=== PATIENT | female | born 1935 | race Caucasian/White ===

== ENCOUNTER 2018-08-28 16:33 | Inpatient (IN) ==
[2018-08-28] MEDS ORDERED: Sod Chloride 0.9% Inj 1,000 ML IV.SIG ONE ×3 (17:02→18:49)
--- NOTE | 2018-08-28 17:05 | ED ---
HPI General Chief complaint: Weakness Stated complaint: poss low blood pressure Time Seen by Provider: 08/28/18 16:53 Source: patient Mode of arrival: ambulatory Limitations: no limitations History of Present Illness HPI Narrative: 82 YO F with PMH of DM, CKD, HLD, HTN presents to the ED for evaluation of chills, fever. Chills onset around 930 this AM. She states that she had a diminished appetite at breakfast today and went home and "got under a bunch of blankets." She states that she took her temperature around noon by oral thermometer and "it was 102." She states that she took two Tylenol. She states that "I know the fever broke because I got sweaty." She states that she was feeling well prior to this. On presentation she denies headache, dizziness , chest pain, palpitations, shortness of breath, abdominal pain, nausea, vomiting, dysuria. She states that she had a normal bowel movement yesterday followed by a few loose bowel movements last night. She endorses chronic back pain, no worse today. She has received this years flu shot. She has received the pneumonia shot. Related Data Home Medications Medication Instructions Recorded Confirmed acetaminophen [Tylenol] 650 mg PO Q6H PRN 08/28/18 08/28/18 cholecalciferol (vitamin D3) 5,000 units PO DAILY 08/28/18 08/28/18 [Vitamin D3] cyanocobalamin (vitamin B-12) 2,000 mcg PO DAILY 08/28/18 08/28/18 [Vitamin B-12] enalapril maleate 40 mg PO DAILY 08/28/18 08/28/18 gabapentin 100 mg PO HS 08/28/18 08/28/18 glipizide 10 mg PO BID 08/28/18 08/28/18 lovastatin 40 mg PO DAILY 08/28/18 08/28/18 meclizine 25 mg PO BID PRN 08/28/18 08/28/18 metformin 1,000 mg PO AC BREAKFAST 08/28/18 08/28/18 metformin 1,500 mg PO HS 08/28/18 08/28/18 niacin 1,000 mg PO DAILY 08/28/18 08/28/18 pioglitazone 45 mg PO DAILY 08/28/18 08/28/18 pioglitazone [Actos] 45 mg PO DAILY 08/28/18 08/28/18 triamterene-hydrochlorothiazid 1 tab PO DAILY 08/28/18 08/28/18 Allergies Allergy/AdvReac Type Severity Reaction Status Date / Time aspirin Allergy Severe Anaphylaxis Verified 08/28/18 17:48 NSAIDS (Non-Steroidal Allergy Anaphylaxis Verified 08/28/18 17:48 Anti-Inflamma Review of Systems ROS: all other systems reviewed are negative [facility] Medical History Medical History Chronic kidney disease (Acute) Degenerative disk disease (Acute) Diabetes (Acute) Diverticulosis (Acute) Hyperlipidemia (Acute) Osteopenia (Acute) Surgical History Surgical History History of left shoulder replacement (Acute) History of right knee joint replacement (Acute) Social History Social History Substance History: No History of Abuse Smoking Status: Former smoker How Often Do You Have a Drink Containing Alcohol: Never Recent Travel in [place] within the Last 8 Weeks: No Recent Out of Country Travel within the Last 8 Weeks: No Immunization History Tetanus Immunization: Unsure Exam Narrative Exam Narrative: GENERAL: Well-nourished, well-developed, nontoxic-appearing obese white female in no acute distress. SKIN: Focused skin assessment warm/dry. HEAD: Atraumatic. Normocephalic. EYES: Pupils equal and round. No scleral icterus. No injection or drainage. ENT: No nasal bleeding or discharge. Mucous membranes pink and moist. NECK: Trachea midline. No JVD. CARDIOVASCULAR: Regular rate and rhythm. No murmur appreciated. RESPIRATORY: No accessory muscle use. Clear to auscultation. Breath sounds equal bilaterally. GASTROINTESTINAL: Abdomen soft, non-tender, nondistended. Hepatic and splenic margins not palpable. MUSCULOSKELETAL: No obvious deformities. No clubbing. No cyanosis. No edema. NEUROLOGICAL: Awake and alert. No obvious cranial nerve deficits. Motor grossly within normal limits. Normal speech. PSYCHIATRIC: Appropriate mood and affect; insight and judgment normal. Course Initial Documented Vital Signs Temperature 98.8 F 08/28/18 16:41 Pulse Rate 117 H 08/28/18 16:41 Respiratory Rate 20 08/28/18 16:41 Blood Pressure 161/85 H 08/28/18 16:41 Pulse Oximetry 93 L 08/28/18 16:41 Last Documented Vital Signs Temperature 98.8 F 08/28/18 16:41 Pulse Rate 103 H 08/28/18 18:01 Respiratory Rate 20 08/28/18 18:01 Blood Pressure 137/58 L 08/28/18 18:01 Pulse Oximetry 97 08/28/18 18:01 Medical Decision Making TAMMY Attestation TAMMY supervised visit: Yes Attestation: I, Dr. Oh, have reviewed the advance practice practitioner's documentation and am in agreement, met with the patient face to face, made the diagnosis, and the medical decision making was done by me. *My assessment and Findings: Patient is an 82-year-old female with history of chronic kidney disease, hyperlipidemia, diabetes, degenerative disc disease, presents to the emergency room for evaluation of chills. Patient reports that around 9:30 AM this morning , she began to not feel well. Patient reports that she went to shiver and had to go under her blankets. Patient with no complaints of cough or congestion, denies any headache or dizziness, denies any abdominal pain. Patient is tachycardic in the emergency room with a heart rate of 115. Her white blood cell count is 25.6, x-ray of the chest shows no acute process, influenza types A & B are negative. Patient was pancultured, he was given a dose of vanco as well as zosyn MDM Narrative Medical decision making narrative: .82 YO F with PMH of DM, CKD, HLD, HTN presents to the ED for evaluation of fever. On presentation she denies headache , dizziness, chest pain, palpitations, shortness of breath, cough, abdominal pain, nausea, vomiting, dysuria. She states that she had a normal bowel movement yesterday followed by a few loose bowel movements last night. She endorses chronic back pain, no worse today. She has received this years flu shot. She has received the pneumonia shot. Heart rate 117, BP 161/85, afebrile on presentation. On exam the patient is nontoxic appearing. ENT exam is unremarkable. Chest CTA B. Abdomen soft and nontender. No lower extremity edema. IV was established. Patient was administered 1 L normal saline. Flu swab negative. CBC reveals leukocytosis of 25.6 with 23 band neutrophils. INR 1.1. EKG without acute changes. Troponin less than 0.02. CXR reveals no acute cardiopulmonary process. UA without evidence of UTI. Patient was administered a second liter of normal saline. Lactic acid pending. Blood cultures were obtained. Patient was administered IV vancomycin and Zosyn. Plan to admit. Patient is agreeable with this plan. I spoke with Dr. Steiner who agrees to accept the patient to the medicine service. Please see medicine notes for disposition. Medical Screen Exam Complete: Yes Emergency Medical Condition: Yes Differential Diagnosis Differential Diagnosis: Viral syndrome versus influenza versus metabolic derangement versus dehydration versus CHF versus UTI versus other Lab Data Result diagrams: 08/28/18 17:10 08/28/18 17:10 Lab Results 08/28/18 08/28/18 08/28/18 Range/Units 17:10 17:10 17:10 WBC 25.6 H (4.0-11.0) th/mm3 RBC 3.84 L (4.00-5.30) mil/mm3 Hgb 12.2 (11.6-15.3) gm/dL Hct 37.0 (35.0-46.0) % MCV 96.3 (80.0-100.0) fL MCH 31.8 (27.0-34.0) pg MCHC 33.0 (32.0-36.0) % RDW 14.7 (11.6-17.2) % Plt Count 162 (150-450) th/mm3 MPV 11.1 H (7.0-11.0) fL Prelim Diff (Auto) Slide review pending WBC Differential Manual diff final Seg Neuts % (Manual) 69 (16-70) % Band Neuts % (Manual) 23 H (0-6) % Lymphocytes % (Manual) 3 L (9-44) % Monocytes % (Manual) 4 (0-8) % Eosinophils % (Manual) 1 (0-4) % Abs Neuts (Manual) 23.6 H (1.8-7.7) th/mm3 Differential Comment . Platelet Estimate Normal (Normal) Platelet Morphology Giant H (Normal) RBC Morphology Normal (Normal) PT 11.2 (9.8-11.6) sec INR 1.1 Ratio Sodium 137 (136-145) meq/L Potassium 5.0 (3.5-5.1) meq/L Chloride 105 (98-107) meq/L Carbon Dioxide 23.7 (21.0-32.0) meq/L Anion Gap 8 (5-15) meq/L BUN 38 H (7-18) mg/dL Creatinine 2.11 H (0.50-1.00) mg/dL Estimated GFR 22 L (>89) mL/min Random Glucose 319 H (74-106) mg/dL Calcium 8.8 (8.5-10.1) mg/dL Magnesium 1.7 (1.5-2.5) mg/dL Total Bilirubin 0.8 (0.2-1.0) mg/dL AST 63 H (15-37) U/L ALT 48 (10-53) U/L Alkaline Phosphatase 99 (45-117) U/L Troponin I Less than 0.02 L (0.02-0.05) ng/mL B-Natriuretic Peptide (0-100) pg/mL Total Protein 7.7 (6.4-8.2) g/dL Albumin 3.6 (3.4-5.0) g/dL Urine Color (Yellw/Straw) Urine Clarity (Clear) Urine pH (5.0-8.5) Ur Specific [place] (1.002-1.035) Urine Protein (Neg-Trace) mg/dL Urine Glucose (UA) (Negative) mg/dL Urine Ketones (Negative) mg/dL Urine Occult Blood (Negative) Urine Nitrate (Negative) Urine Bilirubin (Negative) Urine Urobilinogen (Less than 2) mg/dL Ur Leukocyte Esterase (Negative) Urine RBC (0-3) /hpf Urine WBC (0-5) /hpf Ur Squamous Epith Cells (0-5) /hpf Ur Transition Epith Cell (None) /hpf Ur Renal Epithelial Cell (None) /hpf Hyaline Casts (0-3) /lpf Waxy Casts (None) /lpf Urine Mucus (Occasional) /lpf Micro UA Comment Ur Microscopic Review Urine Culture Comments 08/28/18 08/28/18 Range/Units 17:10 17:25 WBC (4.0-11.0) th/mm3 RBC (4.00-5.30) mil/mm3 Hgb (11.6-15.3) gm/dL Hct (35.0-46.0) % MCV (80.0-100.0) fL MCH (27.0-34.0) pg MCHC (32.0-36.0) % RDW (11.6-17.2) % Plt Count (150-450) th/mm3 MPV (7.0-11.0) fL Prelim Diff (Auto) WBC Differential Seg Neuts % (Manual) (16-70) % Band Neuts % (Manual) (0-6) % Lymphocytes % (Manual) (9-44) % Monocytes % (Manual) (0-8) % Eosinophils % (Manual) (0-4) % Abs Neuts (Manual) (1.8-7.7) th/mm3 Differential Comment Platelet Estimate (Normal) Platelet Morphology (Normal) RBC Morphology (Normal) PT (9.8-11.6) sec INR Ratio Sodium (136-145) meq/L Potassium (3.5-5.1) meq/L Chloride (98-107) meq/L Carbon Dioxide (21.0-32.0) meq/L Anion Gap (5-15) meq/L BUN (7-18) mg/dL Creatinine (0.50-1.00) mg/dL Estimated GFR (>89) mL/min Random Glucose (74-106) mg/dL Calcium (8.5-10.1) mg/dL Magnesium (1.5-2.5) mg/dL Total Bilirubin (0.2-1.0) mg/dL AST (15-37) U/L ALT (10-53) U/L Alkaline Phosphatase (45-117) U/L Troponin I (0.02-0.05) ng/mL B-Natriuretic Peptide 30 (0-100) pg/mL Total Protein (6.4-8.2) g/dL Albumin (3.4-5.0) g/dL Urine Color Yellow (Yellw/Straw) Urine Clarity Hazy H (Clear) Urine pH 7.0 (5.0-8.5) Ur Specific [place] 1.015 (1.002-1.035) Urine Protein 30 H (Neg-Trace) mg/dL Urine Glucose (UA) 50 (Negative) mg/dL Urine Ketones Negative (Negative) mg/dL Urine Occult Blood Negative (Negative) Urine Nitrate Negative (Negative) Urine Bilirubin Negative (Negative) Urine Urobilinogen Less than 2 (Less than 2) mg/dL Ur Leukocyte Esterase Trace H (Negative) Urine RBC Less than 1 (0-3) /hpf Urine WBC 4 (0-5) /hpf Ur Squamous Epith Cells 1 (0-5) /hpf Ur Transition Epith Cell <1 (None) /hpf Ur Renal Epithelial Cell <1 (None) /hpf Hyaline Casts 45 (0-3) /lpf Waxy Casts 1 (None) /lpf Urine Mucus Few H (Occasional) /lpf Micro UA Comment Culture not ind Ur Microscopic Review Not Reportable Urine Culture Comments Culture not ind Imaging Data Radiologist's impression: Chest X-Ray 08/28/18 17:02 CONCLUSION: No acute cardiopulmonary disease. ECG Data Attestation: I personally reviewed and interpreted this ECG as follows: Interpretation: Rate 115, sinus tachycardia. AL interval 135, QRS 88, QTc 383 ms. Normal axis. No acute ST changes. Reviewed by Dr. Oh. Discharge Plan Discharge Disposition Patient Disposition: ED Admit(ED Internal Use Only) Discharge Order Discharge Orders: ED Use Only Admit Order (Routine); Ordered 08/28/18 Ordered By: Yanely Morales Physicians Team ED Provider: Jessica Oh ED Midlevel Provider: Yanely Morales Primary Care Provider: Branden Paul Rxs /Orders / Referrals /Forms Prescriptions: No Action acetaminophen [Tylenol] 325 mg Tablet 650 mg PO Q6H PRN (Reason: Pain) RF: 0 enalapril maleate 20 mg Tablet 40 mg PO DAILY RF: 0 lovastatin 40 mg Tablet 40 mg PO DAILY RF: 0 cyanocobalamin (vitamin B-12) [Vitamin B-12] 1,000 mcg Tablet 2,000 mcg PO DAILY RF: 0 pioglitazone 45 mg Tablet 45 mg PO DAILY RF: 0 pioglitazone [Actos] 45 mg Tablet 45 mg PO DAILY RF: 0 meclizine 25 mg Tablet 25 mg PO BID PRN (Reason: Dizziness) RF: 0 metformin 1,000 mg Tablet 1,500 mg PO HS RF: 0 metformin 1,000 mg Tablet 1,000 mg PO AC BREAKFAST RF: 0 niacin 500 mg Tablet 1,000 mg PO DAILY RF: 0 triamterene-hydrochlorothiazid 37.5-25 mg Tablet 1 tab PO DAILY RF: 0 gabapentin 100 mg Capsule 100 mg PO HS RF: 0 glipizide 5 mg Tablet 10 mg PO BID RF: 0 cholecalciferol (vitamin D3) [Vitamin D3] 5,000 unit Tablet 5,000 units PO DAILY RF: 0 Discharge Interventions Interventions: Vital Signs Last Done: 08/28/18 18:01 Status ED Status: Pending Admission
--- NOTE | 2018-08-28 17:16 | XR ---
EXAM DATE: 08/28/2018 5:12 PM EST AGE/SEX: 82 years / Female INDICATIONS: Short of breath CLINICAL DATA: This is the patient's initial encounter. Patient reports that signs and symptoms have been present for 1 day and indicates a pain score of 0/10. MEDICAL/SURGICAL HISTORY: Diabetes mellitus type II. . Left shoulder replacement COMPARISON: No prior exams available for comparison. FINDINGS: A single AP view of the chest demonstrates the lungs to be symmetrically aerated without evidence of mass, infiltrate or effusion. The heart size is at the upper limits of normal with no evidence of pu lmonary edema. Osseous structures are intact. CONCLUSION: No acute cardiopulmonary disease. Electronically signed by: Elder Pena MD Board Certified Radiologist 08/28/2018 5:14 PM EST
[2018-08-28 17:25] LABS: Hemoglobin 12.2 gm/dL (11.6-15.3); Mean Corpuscular Hemoglobin 31.8 pg (27.0-34.0); Mean Corpuscular Volume 96.3 fL (80.0-100.0); Mean Platelet Volume 11.1 fL (7.0-11.0); Platelet Count 162 th/mm3 (150-450); Red Blood Count 3.84 mil/mm3 (4.00-5.30); Red Cell Distribution Width 14.7 % (11.6-17.2); White Blood Count 25.6 th/mm3 (4.0-11.0)
[2018-08-28 17:37] LABS: INR 1.1 Ratio; Prothrombin Time 11.2 sec (9.8-11.6)
[2018-08-28] MEDS ORDERED: Vancomycin Inj 1,000 MG in Sodium Chlor 0.9% Inj 250 ML IV.SIG ONE (17:44)
[2018-08-28] MEDS ORDERED: Piperacil/Tazo 4.5 GM Premix 4.5 GM/100 ML BAG IV.SIG SCH (17:45)
[2018-08-28 17:53] LABS: Bilirubin,Urine Negative (Negative); Clarity,Urine Hazy (Clear); Color,Urine Yellow (Yellw/Straw); Glucose,Urine (UA) 50 mg/dL (Negative); Hyaline Casts,Urine 45 /lpf (0-3); Leukocyte Esterase,Urine Trace (Negative); Mucus,Urine Few /lpf (Occasional); Nitrite,Urine Negative (Negative); Renal Epithelial Cells,Urine <1 /hpf; Specific Gravity,Urine 1.015 (1.002-1.035); Squamous Epithelial Cell,Urine 1 /hpf (0-5); Transitional Epi Cells,Urine <1 /hpf
[2018-08-28 17:55] LABS: Eosinophils 1 % (0-4); Lymphocytes 3 % (9-44); Monocytes 4 % (0-8); Platelet Estimate Normal (Normal); RBC Morphology Normal (Normal)
[2018-08-28 17:58] LABS: Alkaline Phosphatase 99 U/L (45-117); Total Protein 7.7 g/dL (6.4-8.2)
[2018-08-28 18:08] LABS: Alanine Aminotransferase 48 U/L (10-53); Albumin 3.6 g/dL (3.4-5.0); Anion Gap 8 meq/L (5-15); Aspartate Aminotransferase 63 U/L (15-37); Blood Urea Nitrogen 38 mg/dL (7-18); Calcium 8.8 mg/dL (8.5-10.1); Carbon Dioxide 23.7 meq/L (21.0-32.0); Chloride 105 meq/L (98-107); Glomerular Filtration Rate 22 mL/min (>89); Glucose,Random 319 mg/dL (74-106); Magnesium 1.7 mg/dL (1.5-2.5); Sodium 137 meq/L (136-145)
[2018-08-28] MEDS ORDERED: Vancomycin Consult Pharmacy OTHER PRN (19:27)
[2018-08-28] MEDS ORDERED: Bisacodyl 10 MG Supp RECTAL PRN (19:27)
[2018-08-28] MEDS ORDERED: Dextrose 50% in Water 50 ML Vial IV.PUSH PRN (19:27)
[2018-08-28] MEDS ORDERED: Vancomycin Inj 500 MG in Sodium Chlor 0.9% Inj 100 ML IV.SIG ONE (20:30)
[2018-08-28] MEDS: Senna/Docusate Sodium 8.6/50 MG Tablet PO SCH (21:05)
--- NOTE | 2018-08-28 21:05 | P.HPIM ---
History of Present Illness Primary Care Physician: Branden Paul MD History of Present Illness: CXR with no acute findings per Troponin negative. INR 1.1.This is a 82-year-old female with a PMH of HTN, Hyperlipidemia , DM and CKD who presented to the ER at the insistence of her children who are Paramedics for eval of fever, chills and generalized weakness starting today. Pt states she went to breakfast with a friend, however had no appetite and developed sudden chills, temp at home 101.0. Denies cough, SOB, chest pain, nausea, vomiting or diarrhea. No sick contacts reported. On arrival, BP 161/85 , HR 117, O2 sat 93% on RA, Temp 98.8. WBC 25.6 per lactic Acid 4.1. Creatinine 2.11, previously 1.33 on 04/16/2016. UA negative for UTI. CXR with no acute findings. S/p Blood cultures, Vanc/Zosyn. Pt currently without complaints. Diagnosis (1) Sepsis: (2) ROLANDO (acute kidney injury): (3) DM (diabetes mellitus): Inpatient Certification Inpatient Certification: I certify that the inpatient services were ordered in accordance with Medicare regulations governing the order. This includes certification that hospital inpatient services are reasonable and necessary and in the case of services not specified as inpatient-only under 42 CFR 419.22(n), that they are appropriately provided as inpatient services in accordance to with the 2-midnight benchmark under 43 CFR 412.3(e) Estimated Total Length of Stay (Days): 2 Plans for Post Hospital Care: Not yet determined Review of Systems Review of Systems: all other systems reviewed are negative [facility] Medical History Medical History Chronic kidney disease (Acute) Degenerative disk disease (Acute) Diabetes (Acute) Diverticulosis (Acute) Hyperlipidemia (Acute) Osteopenia (Acute) Surgical History Surgical History History of left shoulder replacement (Acute) History of right knee joint replacement (Acute) Social History Social History Substance History: No History of Abuse Smoking Status: Former smoker How Often Do You Have a Drink Containing Alcohol: Never Recent Travel in [facility] within the Last 8 Weeks: No Recent Out of Country Travel within the Last 8 Weeks: No Immunization History Tetanus Immunization: Unsure Medications and Allergies Allergies Allergy/AdvReac Type Severity Reaction Status Date / Time aspirin Allergy Severe Anaphylaxis Verified 08/28/18 17:48 NSAIDS (Non-Steroidal Allergy Anaphylaxis Verified 08/28/18 17:48 Anti-Inflamma Home Medications Medication Instructions Recorded Confirmed Type acetaminophen [Tylenol] 650 mg PO Q6H PRN 08/28/18 08/28/18 History cholecalciferol (vitamin D3) 5,000 units PO DAILY 08/28/18 08/28/18 History [Vitamin D3] cyanocobalamin (vitamin B-12) 2,000 mcg PO DAILY 08/28/18 08/28/18 History [Vitamin B-12] enalapril maleate 40 mg PO DAILY 08/28/18 08/28/18 History gabapentin 100 mg PO HS 08/28/18 08/28/18 History glipizide 10 mg PO BID 08/28/18 08/28/18 History lovastatin 40 mg PO DAILY 08/28/18 08/28/18 History meclizine 25 mg PO BID PRN 08/28/18 08/28/18 History metformin 1,000 mg PO AC BREAKFAST 08/28/18 08/28/18 History metformin 1,500 mg PO HS 08/28/18 08/28/18 History niacin 1,000 mg PO DAILY 08/28/18 08/28/18 History pioglitazone 45 mg PO DAILY 08/28/18 08/28/18 History pioglitazone [Actos] 45 mg PO DAILY 08/28/18 08/28/18 History triamterene-hydrochlorothiazid 1 tab PO DAILY 08/28/18 08/28/18 History Active Medications: Active Medications Acetaminophen (Tylenol) 650 mg PO Q4H PRN PRN Reason: Temp > 100.4 Al Hydroxide/Mg Hydroxide (Milk Of Magnesia Liq) 30 ml PO Q12H PRN PRN Reason: Mild Constipation Bisacodyl (Dulcolax Supp) 10 mg RECTAL DAILY PRN PRN Reason: SEVERE CONSITIPATION Dextrose (D50w Vial) 50 ml IV.PUSH UNSCH PRN PRN Reason: PER HYPOGLYCEMIA PROTOCOL Glucagon (Glucagon Inj) 1 mg OTHER PRN PRN PRN Reason: for Hypoglycemia Protocol Piperacillin/Tazobactam/Dextrose (Zosyn 4.5 Gm Premix) 4.5 gm in 100 mls @ 200 mls/hr IV.SIG ONCE [facility] Last Infusion: 08/28/18 18:43 Dose: Infused Cefepime HCl 1,000 mg/ Sodium (Chloride) 100 mls @ 200 mls/hr IV.SIG Q12H MISSY Sodium Chloride (Ns Inj) 1,000 mls @ 100 mls/hr IV.CONT .Q10H MISSY Insulin Aspart (Novolog Insulin Correctional Sugar Inj) 0 unit SQ ACHS MISSY; Protocol Lactulose (Lactulose Liq) 30 ml PO DAILY PRN PRN Reason: SEVERE CONSITIPATION Ondansetron HCl (Zofran Inj) 4 mg IV.PUSH Q6H PRN PRN Reason: NAUSEA OR VOMITING Pharmacy Profile Note (Vancomycin Consult Pharmacy) 1 each OTHER UNSCH PRN PRN Reason: Pharmacy to dose Senna/Docusate Sodium (Zoraida-Colace) 1 tab PO BID [facility] Last Admin: 08/28/18 21:05 Dose: Not Given Sennosides (Senokot) 17.2 mg PO Q12H PRN PRN Reason: Moderate Constipation Sodium Chloride (Ns Flush) 2 ml IV.FLUSH PRN PRN PRN Reason: FLUSH AFTER USING IV ACCESS Sodium Chloride (Ns Flush) 2 ml IV.FLUSH BID [facility] Last Admin: 08/28/18 21:04 Dose: 2 ml Sodium Chloride (Ns Flush) 2 ml IV.FLUSH PRN PRN PRN Reason: FLUSH AFTER USING IV ACCESS Sodium Chloride (Ns Flush) 2 ml IV.FLUSH BID [facility] Last Admin: 08/28/18 21:04 Dose: 2 ml Sodium Chloride (Ns Flush) 2 ml IV.FLUSH PRN PRN PRN Reason: FLUSH AFTER USING IV ACCESS Physical Exam Vital signs: Last Vital Signs Temp 98.8 F 08/28/18 16:41 Pulse 88 08/28/18 19:40 Resp 18 08/28/18 18:39 BP 143/65 H 08/28/18 18:39 Pulse Ox 98 08/28/18 18:39 Intake & Output 08/26/18 08/27/18 08/28/18 08/29/18 06:59 06:59 06:59 06:59 Intake Total 3350 / 3350 Balance 3350 / 3350 Weight 96.162 kg Narrative: PE: GENERAL: Very pleasant elderly white female in no acute distress, appears much younger than stated age.. SKIN: Focused skin assessment warm and dry. HEENT: PERRLA, EOMI. No scleral icterus or conjunctival pallor. No lid lag or facial droop. CARDIOVASCULAR: Regular rate and rhythm. No obvious murmurs to auscultation. No chest tenderness to palpation. RESPIRATORY: No obvious rhonchi or wheezing. Clear to auscultation. Breath sounds equal bilaterally. GASTROINTESTINAL: Abdomen soft, non-tender, nondistended. BS normal. MUSCULOSKELETAL: Extremities without clubbing, cyanosis, or edema. No obvious deformities. NEUROLOGICAL: Awake, alert and oriented x4. No focal neurologic deficits. Moving both upper and lower extremities spontaneously. PSYCHIATRIC: Appropriate mood and affect. Insight and judgment normal. Results Labs CBC & Chem 7: 08/28/18 17:10 08/28/18 17:10 Imaging Impressions Chest X-Ray 08/28/18 17:02 CONCLUSION: No acute cardiopulmonary disease. Caprini VTE Risk Assessment Caprini VTE Risk Assessment: No/Low Risk (score <= 1) Caprini Risk Assessment Model: Point Value = 1 Point Value = 2 Point Value = 3 Point Value = 5 Age 41-60 Minor surgery BMI > 25 kg/m2 Swollen legs Varicose veins or History of unexplained or recurrent spontaneous Oral contraceptives or hormone replacement Sepsis (< 1 month) Serious lung disease, including pneumonia (< 1 month) Abnormal pulmonary function Acute myocardial infarction Congestive heart failure (< 1 month) History of inflammatory bowel disease Medical patient at bed rest Age 61-74 Arthroscopic surgery Major open surgery (> 45 min) Laparoscopic surgery (> 45 min) Malignancy Confined to bed (> 72 hours) Immobilizing plaster cast Central venous access Age >= 75 History of VTE Family history of VTE Factor V Leiden Prothrombin [id number] Lupus anticoagulant Anticardiolipin antibodies Elevated serum homocysteine Heparin-induced thrombocytopenia Other congenital or acquired thrombophilia Stroke (< 1 month) Elective arthroplasty Hip, pelvis, or leg fracture Acute spinal cord injury (< 1 month) Prophylaxis Regimen: Total Risk Factor Score Risk Level Prophylaxis Regimen 0-1 Low Early ambulation 2 Moderate Order ONE of the following: *Sequential Compression Device (SCD) *Heparin 5000 units SQ BID 3-4 Higher Order ONE of the following medications: *Heparin 5000 units SQ TID *Enoxaparin/Lovenox 40 mg SQ daily (WT < 150 kg, CrCl > 30 mL/min) *Enoxaparin/Lovenox 30 mg SQ daily (WT < 150 kg, CrCl > 10-29 mL/min) *Enoxaparin/Lovenox 30 mg SQ BID (WT < 150 kg, CrCl > 30 mL/min) AND/OR *Sequential Compression Device (SCD) 5 or more Highest Order ONE of the following medications: *Heparin 5000 units SQ TID (Preferred with Epidurals) *Enoxaparin/Lovenox 40 mg SQ daily (WT < 150 kg, CrCl > 30 mL/min) *Enoxaparin/Lovenox 30 mg SQ daily (WT < 150 kg, CrCl > 10-29 mL/min) *Enoxaparin/Lovenox 30 mg SQ BID (WT < 150 kg, CrCl > 30 mL/min) AND *Sequential Compression Device (SCD) Assessment and Plan (1) Sepsis: Code(s): A41.9 - Sepsis, unspecified organism Status: Acute (2) ROLANDO (acute kidney injury): Code(s): N17.9 - Acute kidney failure, unspecified Status: Acute (3) DM (diabetes mellitus): Code(s): E11.9 - Type 2 diabetes mellitus without complications Status: Acute Plan A/P: 1. Sepsis: Temp 101 at home, WBC 25, Lactic Acid 4.1, Source-Unclear, CXR w/ no acute findings, U/a negative for UTI. S/p Blood cultures, Vanc/Zosyn. Follow up cultures, continue w/ IV Abx, IVF for hydration. Repeat Lactic Acid. 2. ROLANDO: Creatinine 2.11, previously 1.33 on 04/16/16, IVF for hydration, monitot I/O, repeat labs in am. 3. DM: Sliding scale w/ Accu-Checks, hold Metformin in light of Sepsis, hold Glipizide/Pioglitazone in light of decreased PO intake. 4. DVT Prophylaxis: SCD/Teds 5. Social work for d/c planning as needed. 6. Case discussed w/ ER physician at length, labs/records/imaging reviewed by me.
[2018-08-28] MEDS: Sod Chloride 0.9% Inj 1,000 ML IV.CONT SCH (22:41)
[2018-08-28] MEDS: Insulin NovoLOG Aspart Correctional Sugar Inj SQ SCH (22:50)
[2018-08-29] MEDS: Acetaminophen 325 MG Tablet PO PRN ×2 (01:09→16:36)
[2018-08-29 05:04] LABS: Baso # (Auto) 0.1 th/mm3 (0.0-0.2); Baso % (Auto) 0.7 % (0.0-2.0); Eos # (Auto) 0.3 th/mm3 (0.0-0.4); Eos % (Auto) 2.3 % (0.0-4.0); Hematocrit 28.9 % (35.0-46.0); Hemoglobin 9.7 gm/dL (11.6-15.3); Lymph # (Auto) 0.9 th/mm3 (1.0-4.8); Lymph % (Auto) 7.6 % (9.0-44.0); Mean Corpuscular HGB Conc 33.6 % (32.0-36.0); Mean Corpuscular Hemoglobin 31.8 pg (27.0-34.0); Mean Corpuscular Volume 94.6 fL (80.0-100.0); Mean Platelet Volume 10.7 fL (7.0-11.0); Mono # (Auto) 0.6 th/mm3 (0.0-0.9); Neut # (Auto) 9.5 th/mm3 (1.8-7.7); Neut % (Auto) 84.4 % (16.0-70.0); Platelet Count 155 th/mm3 (150-450); Red Blood Count 3.05 mil/mm3 (4.00-5.30); Red Cell Distribution Width 14.4 % (11.6-17.2); White Blood Count 11.2 th/mm3 (4.0-11.0)
[2018-08-29 05:48] LABS: Alanine Aminotransferase 33 U/L (10-53); Albumin 2.6 g/dL (3.4-5.0); Alkaline Phosphatase 68 U/L (45-117); Anion Gap 9 meq/L (5-15); Aspartate Aminotransferase 32 U/L (15-37); Blood Urea Nitrogen 31 mg/dL (7-18); Calcium 7.5 mg/dL (8.5-10.1); Carbon Dioxide 21.3 meq/L (21.0-32.0); Chloride 113 meq/L (98-107); Glomerular Filtration Rate 29 mL/min (>89); Glucose,Random 99 mg/dL (74-106); Potassium 4.5 meq/L (3.5-5.1); Sodium 143 meq/L (136-145); Vancomycin,Random 14.7 Comment
--- NOTE | 2018-08-29 08:35 | ECG ---
Date Performed: 08/28/2018 Time Performed: 21:36:19 PTAGE: 82 years EKG: Sinus rhythm LOW QRS VOLTAGE IN PRECORDIAL LEADS POSSIBLE ANTERIOR MYOCARDIAL INFARCTION BORDERLINE ECG PREVIOUS TRACING : 08/28/2018 17.28 DOCTOR: Bijan Mcguire Interpretating Date/Time 08/29/2018 08:34:21
[2018-08-29] MEDS: Senna/Docusate Sodium 8.6/50 MG Tablet PO SCH ×2 (08:48→20:50)
[2018-08-29] MEDS: Sod Chloride 0.9% Inj 1,000 ML IV.CONT SCH ×2 (08:57→17:18)
--- NOTE | 2018-08-29 09:46 | ECG ---
Date Performed: 08/28/2018 Time Performed: 17:28:34 PTAGE: 82 years EKG: SINUS TACHYCARDIA LOW QRS VOLTAGE POSSIBLE ANTERIOR MYOCARDIAL INFARCTION ABNORMAL ECG PREVIOUS TRACING : 04/15/2016 11.06 DOCTOR: Bijan Mcguire Interpretating Date/Time 08/29/2018 09:44:39
--- NOTE | 2018-08-29 09:56 | P.PNIM ---
Subjective Interval history: Follow-up visit sepsis of unknown source, complains of right-sided abdomen and pelvis pain, states it has been worsening. Patient also states that since last week she started increasing her dose of metformin from 1000 twice daily to 1000 twice daily +500 mg in between. Otherwise states that she is feeling a lot better compared to yesterday. States her last hemoglobin A1c was 6.1. Physical Exam Vital signs: Vital Signs 08/28/18 16:41 08/28/18 16:55 08/28/18 17:02 Temperature 98.8 F Pulse Rate 117 H 115 H 107 H Respiratory Rate 20 20 Blood Pressure 161/85 H 157/68 H Pulse Oximetry 93 L 96 97 08/28/18 18:01 08/28/18 18:39 08/28/18 19:40 Temperature Pulse Rate 103 H 91 H 88 Respiratory Rate 20 18 Blood Pressure 137/58 L 143/65 H Pulse Oximetry 97 98 08/28/18 21:00 08/29/18 01:10 08/29/18 01:43 Temperature 99.0 F Pulse Rate 88 87 81 Respiratory Rate 18 20 Blood Pressure 160/68 H 103/50 L Pulse Oximetry 98 97 08/29/18 05:37 08/29/18 07:58 Temperature 98.7 F 98.9 F Pulse Rate 75 75 Respiratory Rate 20 18 Blood Pressure 108/53 L 101/50 L Pulse Oximetry 93 L 93 L Intake & Output 08/28/18 08/29/18 08/29/18 18:59 06:59 18:59 Intake Total 100 / 100 3410 / 3410 1000 / 1000 Balance 100 / 100 3410 / 3410 1000 / 1000 Weight 96.162 kg 108.8 kg Intake: IV 100 / 100 3350 / 3350 1000 / 1000 NS Inj 1,000 ML @ 100 mls/hr IV 1000 / 1000 .CONT .Q10H [facility] Rx#:[id number] Zosyn 4.5 GM Premix 4.5 gm In 100 / 100 100 ml @ 200 mls/hr IV.SIG ONCE [facility] Rx#:[id number] NS Inj 1,000 ML @ Wide Open IV. 3000 / 3000 SIG BOLUS ONE Rx#:[id number] Vancomycin Inj 1,000 MG In NS 250 / 250 Inj 250 ML @ 250 mls/hr IV.SIG ONCE ONE Rx#:[id number] Vancomycin Inj 500 MG In NS Inj 100 / 100 100 ML @ 200 mls/hr IV.SIG ONCE ONE Rx#:[id number] Oral 60 60 Narrative: GENERAL: This is a well-nourished, well-developed patient, in no apparent distress. SKIN: Warm and dry HEENT: Normocephalic. Pupils equal round and reactive. Nose without bleeding. Airway patent. NECK: Trachea midline. CARDIOVASCULAR: Regular rate and rhythm without murmurs, gallops, or rubs. RESPIRATORY: Clear to auscultation. Breath sounds equal bilaterally. No wheezes , rales, or rhonchi. GASTROINTESTINAL: Abdomen soft, non-tender, nondistended. Bowel Sounds normoactive x4. MUSCULOSKELETAL: Extremities without clubbing, cyanosis, or edema. NEUROLOGICAL: Awake and alert. Oriented to time, place, person. No focal neuro deficit. Moves all extremities. Normal speech. Results - Labs CBC & Chem 7: 08/29/18 04:05 08/29/18 04:05 Laboratory Results - last 24 hr 08/28/18 08/28/18 08/28/18 17:10 17:10 17:10 WBC 25.6 H RBC 3.84 L Hgb 12.2 Hct 37.0 MCV 96.3 MCH 31.8 MCHC 33.0 RDW 14.7 Plt Count 162 MPV 11.1 H Prelim Diff (Auto) Slide review pending Neut % (Auto) Lymph % (Auto) [place] % (Auto) Eos % (Auto) Baso % (Auto) Neut # (Auto) Lymph # (Auto) [place] # (Auto) Eos # (Auto) Baso # (Auto) WBC Differential Manual diff final Seg Neuts % (Manual) 69 Band Neuts % (Manual) 23 H Lymphocytes % (Manual) 3 L Monocytes % (Manual) 4 Eosinophils % (Manual) 1 Abs Neuts (Manual) 23.6 H Differential Comment . Platelet Estimate Normal Platelet Morphology Giant H RBC Morphology Normal PT 11.2 INR 1.1 Sodium 137 Potassium 5.0 Chloride 105 Carbon Dioxide 23.7 Anion Gap 8 BUN 38 H Creatinine 2.11 H Estimated GFR 22 L POC Glucose Random Glucose 319 H Lactic Acid Calcium 8.8 Magnesium 1.7 Total Bilirubin 0.8 AST 63 H ALT 48 Alkaline Phosphatase 99 Troponin I Less than 0.02 L B-Natriuretic Peptide Total Protein 7.7 Albumin 3.6 Urine Color Urine Clarity Urine pH Ur Specific [place] Urine Protein Urine Glucose (UA) Urine Ketones Urine Occult Blood Urine Nitrate Urine Bilirubin Urine Urobilinogen Ur Leukocyte Esterase Urine RBC Urine WBC Ur Squamous Epith Cells Ur Transition Epith Cell Ur Renal Epithelial Cell Hyaline Casts Waxy Casts Urine Mucus Micro UA Comment Ur Microscopic Review Urine Culture Comments Random Vancomycin 08/28/18 08/28/18 08/28/18 17:10 17:25 17:58 WBC RBC Hgb Hct MCV MCH MCHC RDW Plt Count MPV Prelim Diff (Auto) Neut % (Auto) Lymph % (Auto) [place] % (Auto) Eos % (Auto) Baso % (Auto) Neut # (Auto) Lymph # (Auto) [place] # (Auto) Eos # (Auto) Baso # (Auto) WBC Differential Seg Neuts % (Manual) Band Neuts % (Manual) Lymphocytes % (Manual) Monocytes % (Manual) Eosinophils % (Manual) Abs Neuts (Manual) Differential Comment Platelet Estimate Platelet Morphology RBC Morphology PT INR Sodium Potassium Chloride Carbon Dioxide Anion Gap BUN Creatinine Estimated GFR POC Glucose Random Glucose Lactic Acid 4.1 H* Calcium Magnesium Total Bilirubin AST ALT Alkaline Phosphatase Troponin I B-Natriuretic Peptide 30 Total Protein Albumin Urine Color Yellow Urine Clarity Hazy H Urine pH 7.0 Ur Specific [place] 1.015 Urine Protein 30 H Urine Glucose (UA) 50 Urine Ketones Negative Urine Occult Blood Negative Urine Nitrate Negative Urine Bilirubin Negative Urine Urobilinogen Less than 2 Ur Leukocyte Esterase Trace H Urine RBC Less than 1 Urine WBC 4 Ur Squamous Epith Cells 1 Ur Transition Epith Cell <1 Ur Renal Epithelial Cell <1 Hyaline Casts 45 Waxy Casts 1 Urine Mucus Few H Micro UA Comment Culture not ind Ur Microscopic Review Not Reportable Urine Culture Comments Culture not ind Random Vancomycin 08/28/18 08/28/18 08/29/18 22:00 22:49 04:05 WBC 11.2 H D RBC 3.05 L Hgb 9.7 L D Hct 28.9 L MCV 94.6 MCH 31.8 MCHC 33.6 RDW 14.4 Plt Count 155 MPV 10.7 Prelim Diff (Auto) Neut % (Auto) 84.4 H Lymph % (Auto) 7.6 L [place] % (Auto) 5.0 Eos % (Auto) 2.3 Baso % (Auto) 0.7 Neut # (Auto) 9.5 H Lymph # (Auto) 0.9 L [place] # (Auto) 0.6 Eos # (Auto) 0.3 Baso # (Auto) 0.1 WBC Differential . Seg Neuts % (Manual) Band Neuts % (Manual) Lymphocytes % (Manual) Monocytes % (Manual) Eosinophils % (Manual) Abs Neuts (Manual) Differential Comment Auto diff final Platelet Estimate Platelet Morphology RBC Morphology PT INR Sodium Potassium Chloride Carbon Dioxide Anion Gap BUN Creatinine Estimated GFR POC Glucose 128 H Random Glucose Lactic Acid 2.4 H Calcium Magnesium Total Bilirubin AST ALT Alkaline Phosphatase Troponin I B-Natriuretic Peptide Total Protein Albumin Urine Color Urine Clarity Urine pH Ur Specific [place] Urine Protein Urine Glucose (UA) Urine Ketones Urine Occult Blood Urine Nitrate Urine Bilirubin Urine Urobilinogen Ur Leukocyte Esterase Urine RBC Urine WBC Ur Squamous Epith Cells Ur Transition Epith Cell Ur Renal Epithelial Cell Hyaline Casts Waxy Casts Urine Mucus Micro UA Comment Ur Microscopic Review Urine Culture Comments Random Vancomycin 08/29/18 08/29/18 04:05 07:44 WBC RBC Hgb Hct MCV MCH MCHC RDW Plt Count MPV Prelim Diff (Auto) Neut % (Auto) Lymph % (Auto) [place] % (Auto) Eos % (Auto) Baso % (Auto) Neut # (Auto) Lymph # (Auto) [place] # (Auto) Eos # (Auto) Baso # (Auto) WBC Differential Seg Neuts % (Manual) Band Neuts % (Manual) Lymphocytes % (Manual) Monocytes % (Manual) Eosinophils % (Manual) Abs Neuts (Manual) Differential Comment Platelet Estimate Platelet Morphology RBC Morphology PT INR Sodium 143 Potassium 4.5 Chloride 113 H D Carbon Dioxide 21.3 Anion Gap 9 BUN 31 H Creatinine 1.69 H Estimated GFR 29 L POC Glucose 78 Random Glucose 99 D Lactic Acid Calcium 7.5 L D Magnesium Total Bilirubin 0.6 AST 32 ALT 33 Alkaline Phosphatase 68 Troponin I B-Natriuretic Peptide Total Protein 6.0 L D Albumin 2.6 L D Urine Color Urine Clarity Urine pH Ur Specific [place] Urine Protein Urine Glucose (UA) Urine Ketones Urine Occult Blood Urine Nitrate Urine Bilirubin Urine Urobilinogen Ur Leukocyte Esterase Urine RBC Urine WBC Ur Squamous Epith Cells Ur Transition Epith Cell Ur Renal Epithelial Cell Hyaline Casts Waxy Casts Urine Mucus Micro UA Comment Ur Microscopic Review Urine Culture Comments Random Vancomycin 14.7 Microbiology 08/28/18 17:05 Nasal Wash Influenza Types A,B Antigen - Final Negative for FLU A and B antigen Infection due to influenza A or B cannot be ruled out since the antigen present in the sample may be below the detection limit of the test. - Imaging Impressions Chest X-Ray 08/28/18 17:02 CONCLUSION: No acute cardiopulmonary disease. Assessment and Plan - Assessment (1) Sepsis Code(s): A41.9 - Sepsis, unspecified organism Status: Acute (2) ROLANDO (acute kidney injury) Code(s): N17.9 - Acute kidney failure, unspecified Status: Acute (3) DM (diabetes mellitus) Code(s): E11.9 - Type 2 diabetes mellitus without complications Status: Acute - Plan 82-year-old female with a PMH of HTN, Hyperlipidemia, DM and CKD who presented to the ER at the insistence of her children who are Paramedics for eval of fever , chills and generalized weakness Sepsis, Temp 101 at home, WBC 25, Lactic Acid 4.1, Source-Unclear -CXR w/ no acute findings, U/a negative for UTI. -S/p Blood cultures, -Follow up cultures, NGTD -continue w/ IV Abx Vanc/Zosyn -IVF for hydration. Repeat Lactic Acid 2.4 -Complains of right lower quadrant abdominal pain. Pelvic area pain. Will check abdominal CT. We will follow-up results. ROLANDO, Creatinine 2.11 -previously 1.33 on 04/16/16 -IVF for hydration -Improved 2.11 -->1.69 DM -Sliding scale w/ Accu-Checks, hold Metformin in light of Sepsis, -hold Glipizide/Pioglitazone in light of decreased PO intake. -As per patient, her dose for metformin is 1000mg BID and 500mg noon time. She was taking 1000 twice daily for quite some time but recently 4 days ago she started adding 500 mg at noon time. -Insulin sliding scale for now. Monitor Accu-Cheks DVT Prophylaxis, SCD/Teds. Early ambulation Full code Discussed Condition With: Patient, nursing, Dr. Navarro Discharge Planning: Plan to DC home possibly in 1-2 days when clinically improved (3) DM (diabetes mellitus) Qualifiers: Diabetes mellitus type: type 2
[2018-08-29] MEDS ORDERED: Diatrizoate Meglum/Diatrizoate Sod Liq 9 ML UDC PO ONE (09:57)
[2018-08-29] MEDS ORDERED: Vancomycin Inj 1,500 MG in Sodium Chlor 0.9% Inj 500 ML IV.SIG ONE (11:00)
[2018-08-29] MEDS: Insulin NovoLOG Aspart Correctional Sugar Inj SQ SCH ×4 (11:47→20:49)
[2018-08-29] MEDS ORDERED: Gabapentin 100 MG Capsule PO SCH (21:00)
--- NOTE | 2018-08-29 22:10 | CT ---
EXAM DATE: 08/29/2018 10:06 PM EST AGE/SEX: 82 years / Female INDICATIONS: Right lower abdomen pain CLINICAL DATA: This is the patient's initial encounter. Patient reports that signs and symptoms have been present for 1 day and indicates a pain score of 5/10. MEDICAL/SURGICAL HISTORY: Renal failure, chronic. Diabetes. Diverticulosis. . 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 TECHNIQUE: Multiple contiguous axial images were obtained through the abdomen. Images were obtained using multiple row detector helical technique. Using automated exposure control and adjustment of the mA and/or kV according to patient size, radiation dose was kept as low as reasonably achievable to o btain optimal diagnostic quality images. DICOM format image data is available electronically for rev iew and comparison. FINDINGS: LOWER LUNGS: Mild groundglass opacities at the lung bases. LIVER: Hepatomegaly with mild diffuse decreased hepatic attenuation. SPLEEN: Homogeneous density without enlargement. PANCREAS: Grossly unremarkable. KIDNEYS: Kidneys are symmetrical in size without evidence for radiopaque renal calculi or hydronephr osis. No significant contour deforming renal abnormality. ADRENAL GLANDS: Unremarkable. AORTA: Yesenia-aneurysmal. BOWEL/MESENTERY: Mild to moderate sigmoid diverticulosis without significant inflammatory change. Ap pendix is visualized and normal in appearance. No dilated loops of bowel. No free fluid or drainable fluid collections. No free air or pneumatosis. ABDOMINAL WALL: Intact. BLADDER: Contours are smooth. REPRODUCTIVE: Grossly unremarkable. BONY STRUCTURES: Advanced multilevel degenerative spondylosis of the lumbar spine. Grade 2 anterolis thesis of L5 on S1 with apparent bony fusion. CONCLUSION: 1. Normal appendix. 2. Mild to moderate sigmoid diverticulosis without definitive evidence for diverticulitis. 3. Hepatic steatosis. 4. Advanced degenerative changes of the lumbar spine, as above. Electronically signed by: Isai Moseley MD Board Certified Radiologist 08/29/2018 10:09 PM E
[2018-08-30] MEDS: Acetaminophen 325 MG Tablet PO PRN (00:23)
[2018-08-30] MEDS: Sod Chloride 0.9% Inj 1,000 ML IV.CONT SCH ×2 (04:35→12:28)
[2018-08-30 06:15] LABS: Baso # (Auto) 0.1 th/mm3 (0.0-0.2); Baso % (Auto) 0.9 % (0.0-2.0); Eos # (Auto) 0.3 th/mm3 (0.0-0.4); Hematocrit 28.8 % (35.0-46.0); Hemoglobin 9.7 gm/dL (11.6-15.3); Lymph # (Auto) 0.8 th/mm3 (1.0-4.8); Lymph % (Auto) 12.3 % (9.0-44.0); Mean Corpuscular HGB Conc 33.7 % (32.0-36.0); Mean Corpuscular Hemoglobin 32.2 pg (27.0-34.0); Mean Corpuscular Volume 95.4 fL (80.0-100.0); Mean Platelet Volume 10.8 fL (7.0-11.0); Mono # (Auto) 0.5 th/mm3 (0.0-0.9); Mono % (Auto) 7.6 % (0.0-8.0); Neut # (Auto) 4.9 th/mm3 (1.8-7.7); Neut % (Auto) 74.2 % (16.0-70.0); Platelet Count 148 th/mm3 (150-450); Red Blood Count 3.02 mil/mm3 (4.00-5.30); Red Cell Distribution Width 14.1 % (11.6-17.2); White Blood Count 6.7 th/mm3 (4.0-11.0)
[2018-08-30 06:41] LABS: Albumin 2.8 g/dL (3.4-5.0); Anion Gap 7 meq/L (5-15); Aspartate Aminotransferase 29 U/L (15-37); Blood Urea Nitrogen 24 mg/dL (7-18); Calcium 7.5 mg/dL (8.5-10.1); Carbon Dioxide 22.2 meq/L (21.0-32.0); Chloride 114 meq/L (98-107); Glomerular Filtration Rate 36 mL/min (>89); Glucose,Random 156 mg/dL (74-106); Potassium 4.2 meq/L (3.5-5.1); Sodium 143 meq/L (136-145)
[2018-08-30 06:42] LABS: Alanine Aminotransferase 34 U/L (10-53)
[2018-08-30 06:45] LABS: Alkaline Phosphatase 71 U/L (45-117); Total Protein 6.1 g/dL (6.4-8.2); Vancomycin,Random 19.5 Comment
--- NOTE | 2018-08-30 08:32 | P.DS ---
Date of admission: 08/28/18 18:53 Primary care physician: Branden Paul MD Attending physician on discharge: Armen Navarro Anticipated date of discharge: 08/30/18 Brief History from admission: CXR with no acute findings per Troponin negative. INR 1.1.This is a 82-year- old female with a PMH of HTN, Hyperlipidemia, DM and CKD who presented to the ER at the insistence of her children who are Paramedics for eval of fever, chills and generalized weakness starting today. Pt states she went to breakfast with a friend, however had no appetite and developed sudden chills, temp at home 101.0. Denies cough, SOB, chest pain, nausea, vomiting or diarrhea. No sick contacts reported. On arrival, BP 161/85, HR 117, O2 sat 93 % on RA, Temp 98.8. WBC 25.6 per lactic Acid 4.1. Creatinine 2.11, previously 1.33 on 04/16/2016. UA negative for UTI. CXR with no acute findings. S/p Blood cultures, Vanc/Zosyn. Pt currently without complaints. Patient update on day of discharge: Follow-up visit suspicion of sepsis, lactic acidosis, acute kidney injury, DM 2. Patient seen and examined today. Reports she is doing well. States that she is doing well overnight, unable to sleep in the bed properly as it is uncomfortable. Otherwise, denies pain and discomfort. Denies SOB/ dyspnea. Denies chest pain, palpitations, headaches, dizziness. Denies fevers, chills, n/ v/d. Denies hematuria, dysuria. Discussed extensively with patient results of abdominal CT including her diagnosis and condition. DS: Diagnosis - Discharge Diagnosis (1) Sepsis Status: Acute (2) ROLANDO (acute kidney injury) Status: Acute (3) DM (diabetes mellitus) Status: Acute (4) Lactic acid acidosis Status: Acute (5) Lactic acidosis due to diabetes mellitus Status: Acute DS: Medications - Discharge Medications Prescriptions: amlodipine [Norvasc] 5 mg PO DAILY #30 tab enalapril maleate 10 mg PO DAILY #30 tab DS: Summary Hospital Course: 82-year-old female with a PMH of HTN, Hyperlipidemia, DM and CKD who presented to the ER at the insistence of her children who are Paramedics for eval of fever , chills and generalized weakness. Reported to have a temperature of 101 at home, came in with lactic acid 4.1, WBC 25. Source was unclear for sepsis as chest x-ray with no acute findings, UA was negative for urinary tract infection. Follow-up blood cultures negative to date, influenza screen negative. Patient was started on empiric antibiotic coverage of vancomycin and Zosyn later switched to vancomycin and cefepime. Patient was given IV fluids for hydration. Repeat lactic acid sepsis protocol was 2.4. Patient complained of right lower quadrant abdominal pain and pelvic area pain. Abdominal CT was done showing normal appendix. Mild to moderate sigmoid diverticulosis without definitive evidence of diverticulitis. Hepatic steatosis. Advanced degenerative changes to the lumbar spine. Patient was also found to have acute kidney injury. Previously her creatinine in 2016 was 1.33. She was given IV fluid hydration which did significantly improve her creatinine current creatinine near baseline at 1.4. She has diabetes mellitus type 2 wear and she was placed on sliding scale. Metformin was held. Patient was also taking glipizide and pioglitazone at home. Her dose of metformin as per patient was 1000 mg twice daily with 500 at noontime. She has not been taking the noontime previously and started to take it about 4 days ago. In light of metformin use with chronic kidney disease toxicity can develop and lactic acidosis can develop. This can be classified as type B lactic acidosis or an metformin most likely degenerate lactic acidosis as it accumulates due to reduced kidney function. Further evaluation patient has stated she has been having nausea and abdominal pain prior to coming into the hospital but then it was most evident to family members that her mental status was altered, increased shortness of breath, generalized weakness, tachycardia and tachypnea has been noted on her. Discussed extensively with patient that she would need to stop her metformin. Verbalized understanding and she states that she just received a text message from her daughter who is a timing adjuster explaining that metformin could have caused her being at the hospital. Also discussed and explained with patient that her other medications that might contribute to kidney injury will be held and will be replaced by new medications. She will need to follow-up with her primary care provider for a follow-up lab to ensure that her kidney function remains at her baseline. She can continue to use Actos, glipizide. This has been extensively explained with patient. She will need a hemoglobin A1c in 1-2 months for adjustments of her medications. Patient has verbalized understanding and will follow up with PCP. Patient has met maximal benefits of hospitalization. Clinically stable for discharge. - Time Spent with Patient Total time spent providing and/or coordinating discharge services: Greater than 30 minutes - Quality: VTE Deep Vein Thrombosis/Pulmonary Embolism Present on Admission: No Exam Vital signs: Vital Signs 08/29/18 08:50 08/29/18 12:28 08/29/18 16:31 Temperature 98.6 F 99.5 F Pulse Rate 74 74 Respiratory Rate 18 18 20 Blood Pressure 109/70 138/63 Pulse Oximetry 93 L 93 L 08/29/18 20:00 08/29/18 23:30 08/30/18 00:00 Temperature 98.8 F 101.4 F H Pulse Rate 77 85 Respiratory Rate 20 16 20 Blood Pressure 161/67 H 105/74 Pulse Oximetry 95 92 L 08/30/18 02:29 08/30/18 06:00 Temperature 98.9 F 98.7 F Pulse Rate 84 Respiratory Rate 20 Blood Pressure 151/68 H Pulse Oximetry 90 L Intake & Output 08/29/18 08/30/18 08/30/18 18:59 06:59 18:59 Intake Total 3555 / 3555 950 / 950 Output Total 900 / 900 3 / 3 Balance 2655 / 2655 947 / 947 Weight 111.1 kg Intake: IV 2615 / 2615 950 / 950 NS Inj 1,000 ML @ 100 mls/hr IV 1999 / 1999 850 / 850 .CONT .Q10H [facility] Rx#:[id number] Maxipime Inj 1,000 MG In NS Inj 100 / 100 100 / 100 100 ML @ 200 mls/hr IV.SIG Q12H [facility] Rx#:[id number] Vancomycin Inj 1,500 MG In NS 515 / 515 Inj 500 ML @ 250 mls/hr IV.SIG ONCE ONE Rx#:[id number] Oral 940 / 940 Output: Urine 900 / 900 3 / 3 Other: Date of Last Bowel Movement 08/28/18 Weight On Admission 108.8 kg Narrative: GENERAL: This is a morbidly obese, well-developed patient, in no apparent distress. SKIN: Warm and dry HEENT: Normocephalic. Pupils equal round and reactive. Nose without bleeding. Airway patent. NECK: Trachea midline. CARDIOVASCULAR: Regular rate and rhythm without murmurs, gallops, or rubs. RESPIRATORY: Clear to auscultation. Breath sounds equal bilaterally. No wheezes , rales, or rhonchi. GASTROINTESTINAL: Abdomen soft, non-tender, nondistended. Bowel Sounds normoactive x4. MUSCULOSKELETAL: Extremities without clubbing, cyanosis, or edema. NEUROLOGICAL: Awake and alert. Oriented to time, place, person. No focal neuro deficit. Moves all extremities. Normal speech. Results Procedures completed during hospitalization: None Labs on day of discharge: Labs from last 24 hours 08/30/18 08/30/18 08/29/18 04:41 04:41 20:49 WBC 6.7 RBC 3.02 L Hgb 9.7 L Hct 28.8 L MCV 95.4 MCH 32.2 MCHC 33.7 RDW 14.1 Plt Count 148 L MPV 10.8 Neut % (Auto) 74.2 H Lymph % (Auto) 12.3 [place] % (Auto) 7.6 Eos % (Auto) 5.0 H Baso % (Auto) 0.9 Neut # (Auto) 4.9 Lymph # (Auto) 0.8 L [place] # (Auto) 0.5 Eos # (Auto) 0.3 Baso # (Auto) 0.1 WBC Differential . Differential Comment Auto diff final Sodium 143 Potassium 4.2 Chloride 114 H Carbon Dioxide 22.2 Anion Gap 7 BUN 24 H Creatinine 1.40 H Estimated GFR 36 L POC Glucose 114 H Random Glucose 156 H Calcium 7.5 L Total Bilirubin 0.6 AST 29 ALT 34 Alkaline Phosphatase 71 Total Protein 6.1 L Albumin 2.8 L Random Vancomycin 19.5 08/29/18 08/29/18 18:16 12:39 WBC RBC Hgb Hct MCV MCH MCHC RDW Plt Count MPV Neut % (Auto) Lymph % (Auto) [place] % (Auto) Eos % (Auto) Baso % (Auto) Neut # (Auto) Lymph # (Auto) [place] # (Auto) Eos # (Auto) Baso # (Auto) WBC Differential Differential Comment Sodium Potassium Chloride Carbon Dioxide Anion Gap BUN Creatinine Estimated GFR POC Glucose 207 H 106 Random Glucose Calcium Total Bilirubin AST ALT Alkaline Phosphatase Total Protein Albumin Random Vancomycin Preliminary micro results at discharge 08/28/18 17:50 Aerobic Blood Culture - Preliminary Blood - Line No growth in 1 day Anaerobic Blood Culture - Preliminary No growth in 1 day 08/28/18 17:30 Aerobic Blood Culture - Preliminary Blood - Line No growth in 1 day Anaerobic Blood Culture - Preliminary No growth in 1 day - Impressions ITS Impressions Chest X-Ray 08/28/18 17:02 CONCLUSION: No acute cardiopulmonary disease. Abdomen/Pelvis CT 08/29/18 00:00 CONCLUSION: 1. Normal appendix. 2. Mild to moderate sigmoid diverticulosis without definitive evidence for diverticulitis. 3. Hepatic steatosis. 4. Advanced degenerative changes of the lumbar spine, as above. Discharge Plan - Discharge Disposition Patient Disposition: Discharge Home - Discharge Condition Condition: Stable - Discharge Order Discharge Orders: Discharge Order (Routine); Ordered 08/30/18 Ordered By: Melba Self - Physicians Team Primary Care Provider: Branden Paul Attending Provider: Armen Navarro Other Providers: Estefania Mac
[2018-08-30] MEDS ORDERED: amLODIPine 5 MG Tablet PO SCH (09:00)
[2018-08-30] MEDS: Insulin NovoLOG Aspart Correctional Sugar Inj SQ SCH ×2 (09:15→12:28)
[2018-08-30] MEDS: Senna/Docusate Sodium 8.6/50 MG Tablet PO SCH (09:16)
== END 2018-08-30 13:29 | disposition home or self-care (01) ==
LOC: NEPE 16:33 → NEDA 18:53 → N05 22:31
PROVIDERS: ADMIT Hospitalist; ATTEND Hospitalist
DX: E66.9 Obesity, unspecified; E78.5 Hyperlipidemia, unspecified; G89.29 Other chronic pain; M54.9 Dorsalgia, unspecified; Z68.41 Body mass index [BMI] 40.0-44.9, adult; M85.80 Other specified disorders of bone density and structure, unspecified site; A41.9 Sepsis, unspecified organism; E11.21 Type 2 diabetes mellitus with diabetic nephropathy; N17.9 Acute kidney failure, unspecified; Z96.612 Presence of left artificial shoulder joint; E11.22 Type 2 diabetes mellitus with diabetic chronic kidney disease; Z96.651 Presence of right artificial knee joint; I12.9 Hypertensive chronic kidney disease with stage 1 through stage 4 chronic kidney disease, or unspecified chronic kidney disease; N18.9 Chronic kidney disease, unspecified; E87.2 Acidosis; R00.0 Tachycardia, unspecified; Z88.6 Allergy status to analgesic agent; B96.5 Pseudomonas (aeruginosa) (mallei) (pseudomallei) as the cause of diseases classified elsewhere; Z79.84 Long term (current) use of oral hypoglycemic drugs; Z87.891 Personal history of nicotine dependence